=== PATIENT | female | born 1950 | race Caucasian/White ===

== ENCOUNTER → 2016-04-10 | Outpatient (CLI) | payer OTHER ==
[~2016-04-10] MED LIST: IOPAMIDOL (ISOVUE-300) 100 ML BTL IV ONE
--- NOTE | 2016-04-10 14:51 | CT ---
CT of the Abdomen and Pelvis (Without and With Contrast) Clinical Indications: Recent UTI and hematuria. ALLERGIC to antibiotics and unable to get relief. Comparison: December 16, 2011 Technique: Dilute contrast was given orally prior to the scan as per routine. The upper abdomen was imaged before and following intravenous contrast. 100 mL Isovue Isovue-300 were given intravenously by machine power injection. Multidetector helical CT imaging was performed from the diaphragm to the pubic symphysis. Dose reduction techniques were utilized. Findings: CT Scan Without Contrast: There is a moderate amount of atherosclerotic calcification of the abdomin al aorta. No renal or ureteral calcifications. There are some vascular calcifications extending into the pelvic area. The lung bases are clear. No abnormal calcifications in the gallbladder. CT Scan With Contrast: Both kidneys uptake contrast symmetrically. Both excrete symmetrically. Basic ally the full extent of the ureters are visualized today. No filling defects. No mass. Bladder is nor mal. Patient has small bilateral extrarenal pelvises, an incidental finding. There is no evidence for a du plicated ureteral system on either side. The only "abnormality" that I could give this patient is the caliber transition difference between very small ureters bilaterally, and prominent intrarenal colle cting system and extrarenal pelvis. Because of the prominent extrarenal pelvis, I don't think I can c all hydronephrosis on either side per se. Bilateral UPJ is a possibility, although that would be a co ngenital phenomenon that the patient has had all her life. I suppose if there is a remote chance that the urine is getting infected at the level of the kidneys because of slow antegrade drainage, which then in turn translates to UTIs. Liver, spleen, adrenal gland, pancreas, and gallbladder are normal. There is a prominent falciform li gament that also contains focal fatty infiltration surrounding it, with the appearance of a linear ar ea of hypodensity in the left hepatic lobe. Soft tissues and bones are normal for patient's age. Impression: 1. No renal or ureteral stones. No renal mass or cysts. 2. 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 Could this anatomy be a source of recurrent UTI? Consider referral to Urology for an opinion.
== END ==
LOC: FIMAGING 09:35
PROVIDERS: ATTEND Internal Medicine
DX: Z87.442 Personal history of urinary calculi (principal); Z87.440 Personal history of urinary (tract) infections; I70.0 Atherosclerosis of aorta
CPT/HCPCS: Q9967

== ENCOUNTER → 2016-07-10 | Outpatient (CLI) | payer OTHER | LOC: BMCIMAGING 08:55 | DX: Z12.31 Encounter for screening mammogram for malignant neoplasm of breast (principal) | CPT/HCPCS: G0202 ==

== ENCOUNTER 2016-10-10 08:28 | Day surgery (SDC) | payer OTHER ==
[2016-10-10] MEDS ORDERED: FAMOTIDINE 20 MG TAB PO ONE (08:33)
[2016-10-10] MEDS ORDERED: ASPIRIN EC 325 MG TAB PO ONE (08:33)
[2016-10-10] MEDS ORDERED: DIAZEPAM 5 MG TAB PO ONE (08:33)
[2016-10-10] MEDS ORDERED: NS 1,000 ML IV ONE (08:33)
[2016-10-10] MEDS ORDERED: diphenhydrAMINE 25 MG CAP PO ONE (08:33)
--- NOTE | 2016-10-10 08:50 | CPEKG ---
Heart Rate: 78 RR Interval: 769 P-R Interval: 176 QRSD Interval: 74 QT Interval: 404 QTC Interval: 461 P [place]: 58 QRS [place]: 18 T Wave [place]: 38 EKG Severity - BORDERLINE ECG - EKG Impression: SINUS RHYTHM EKG Impression: PROBABLE LEFT ATRIAL ABNORMALITY EKG Impression: INCOMPLETE RIGHT BUNDLE BRANCH BLOCK Electronically Signed By: Dariel Arteaga 10-Oct-2016 17:35:04
[2016-10-10 09:21] LABS: % IMMATURE GRANULYOCYTES 0.4 % (0.0-1.1); ABSOLUTE IMMATURE GRANULOCYTES 0.02 10^3/uL (0.00-0.10); ADD DIFF? NO; ADD MORPH? NO; ADD SCAN? NO; ATYPICAL LYMPHOCYTE FLAG 10 (0-99); FRAGMENT RBC FLAG 0 (0-99); HEMATOCRIT 40.1 % (38.0-47.0); HEMOGLOBIN 14.1 g/dL (12.6-16.3); LEFT SHIFT FLG 0 (0-99); LIPEMIA HEMOLYSIS FLAG 90 (0-99); MEAN CELL HEMOGLOBIN 37.9 pg (27.9-34.1); MEAN CELL HEMOGLOBIN CONCENTR. 35.2 g/dL (32.4-36.7); MEAN CELL VOLUME 107.8 fL (81.5-99.8); MEAN PLATELET VOLUME 9.3 fL (8.7-11.7); PLATELET CLUMPS FLAG 0 (0-99); PLATELET COUNT 193 10^3/uL (150-400); RED BLOOD CELL COUNT 3.72 10^6/uL (4.18-5.33); RED CELL DISTRIBUTION WIDTH 13.3 % (11.5-15.2)
[2016-10-10 09:28] LABS: INR 1.02 (0.83-1.16); PROTIME(PATIENT) 13.3 SEC (12.0-15.0)
[2016-10-10 09:35] LABS: ANION GAP 19 mEq/L (8-16); CALCIUM 9.8 mg/dL (8.5-10.4); CARBON DIOXIDE 23 mEq/l (22-31); CHLORIDE 106 mEq/L (97-110); CHOLESTEROL 179 mg/dL (140-220); CREATININE 0.8 mg/dL (0.6-1.0); GLOMERULAR FILTRATION RATE > 60; GLUCOSE 126 mg/dL (70-100); MAGNESIUM 1.8 mg/dL (1.6-2.3); POTASSIUM 3.9 mEq/L (3.5-5.2); SODIUM 148 mEq/L (134-144); TRIGLYCERIDE 73 mg/dL (35-135); VERY LOW DENSITY LIPOPROTEINS 14 mg/dL (8-25)
[2016-10-10 09:44] LABS: CHOLESTEROL/HDL RATIO 1.63 RATIO (1.00-4.44); HIGH DENSITY LIPOPROTEIN 110 mg/dL (40-85); LOW DENSITY LIPOPROTEIN 55 mg/dL (80-100); NON-HIGH DENSITY LIPOPROTEIN 69 mg/dL (90-129)
[2016-10-10] MEDS ORDERED: IOPAMIDOL (ISOVUE-370) 150 ML BTL IV ONE ×2 (09:52→10:48)
[2016-10-10] MEDS ORDERED: LIDOCAINE 1% 300 MG/30 ML SDV ONE (09:52)
[2016-10-10] MEDS ORDERED: MIDAZOLAM 2 MG/2 ML VIAL ONE (10:04)
[2016-10-10] MEDS ORDERED: fentaNYL 100 MCG/2 ML INJ ONE (10:04)
[2016-10-10] MEDS ORDERED: ATROPINE SULFATE 1 MG/10 ML SYR ONE (11:22)
[2016-10-10] MEDS ORDERED: ATROPINE SULFATE 1 MG/10 ML SYR IVP PRN (15:06)
[2016-10-10] MEDS ORDERED: ONDANSETRON 4 MG/2 ML VIAL IVP PRN (15:06)
[2016-10-10] MEDS ORDERED: OXYCODONE/APAP 5/325 TAB PO PRN (15:06)
[2016-10-10] MEDS ORDERED: HYDROCODONE/APAP 5/325 TAB PO PRN (15:06)
[2016-10-10] MEDS ORDERED: NITROGLYCERIN 0.4 MG BTL SL PRN (15:06)
== END 2016-10-10 17:40 | disposition home or self-care (01) ==
LOC: FCATH 08:28
PROVIDERS: ATTEND Internal Medicine Cardiovascular Disease
PROC: B2151ZZ Fluoroscopy of Left Heart using Low Osmolar Contrast (ICD-10-PCS; principal; 2016-10-10)
PROC: 4A023N7 Measurement of Cardiac Sampling and Pressure, Left Heart, Percutaneous Approach (ICD-10-PCS; principal; 2016-10-10)
PROC: B2111ZZ Fluoroscopy of Multiple Coronary Arteries using Low Osmolar Contrast (ICD-10-PCS; principal; 2016-10-10)
DX: R07.9 Chest pain, unspecified (principal); R42 Dizziness and giddiness; E78.5 Hyperlipidemia, unspecified; I10 Essential (primary) hypertension; Z82.49 Family history of ischemic heart disease and other diseases of the circulatory system
CPT/HCPCS: J0461; J1200; J1644; J2250; J3010; Q9967

== ENCOUNTER → 2017-07-28 | Outpatient (CLI) | payer OTHER | LOC: BMCIMAGING 08:58 | PROVIDERS: ATTEND Internal Medicine | DX: Z12.31 Encounter for screening mammogram for malignant neoplasm of breast (principal) ==

== ENCOUNTER → 2018-07-29 | Outpatient (CLI) | payer OTHER, MEDICARE | LOC: BMCIMAGING 08:46 | PROVIDERS: ATTEND Internal Medicine | DX: Z12.31 Encounter for screening mammogram for malignant neoplasm of breast (principal) ==